=== PATIENT | female | born 1955 | race Caucasian/White ===

== ENCOUNTER 2025-03-04 12:27 | Outpatient (CLI) | payer MEDICARE, SELFPAY ==
--- NOTE | ~2025-03-04 | CT_ITS ---
EXAMINATION: CTA brain carotid DATE: 03/04/2025 13:04 INDICATION: Dizziness and giddiness. TECHNIQUE: Computed tomographic angiography (CTA) of the head was performed without and with 100 mL Omnipaque-350 intravenous contrast. CTA of the neck was performed with intravenous contrast. Automated exposure control and iterative reconstruction technique were employed. The dose-length product was 1637.85 mGy- cm. Maximum intensity projection and volume rendered 3D-reconstructions were created by the technologist on a separate workstation. COMPARISON: None. FINDINGS: HEAD CTA: There are scattered areas of low attenuation in the cerebral white matter, which is within normal limits for the patient's age. There is no intracranial hemorrhage, acute infarction, or abnormal intracranial mass lesion. The ventricles are normal in size. The vertebral arteries are codominant. There is no significant stenosis of basilar artery or the posterior cerebral arteries. There is no significant stenosis of the intracranial internal carotid arteries or anterior or middle cerebral arteries. Anterior communicating artery is normal. The posterior communicating arteries are normal. There is no aneurysm. NECK CTA: There are no pathologically enlarged lymph nodes. There is no significant stenosis of the vertebral arteries. There is plaque in the proximal internal carotid arteries. There is 0% stenosis of the proximal right internal carotid artery relative to normal distal artery lumen diameter (NASCET c riteria). There is 0% stenosis of the proximal left internal carotid artery relative to normal distal artery lumen diameter. There is mild cervical and thoracic spondylosis. IMPRESSION: 1. Normal brain. 2. No aneurysm or significant intracranial arterial stenosis. 3. 0% stenosis of the proximal internal carotid arteries relative to normal distal artery lumen diameters (NASCET criteria). Reviewed, dictated and finalized at location E. NESS PERFORMANCE ADVISOR IMPRESSION: 1. Normal brain. 2. No aneurysm or significant intracranial arterial stenosis. 3. 0% stenosis of the proximal internal carotid arteries relative to normal dis margaret artery lumen diameters (NASCET criteria).
--- OUTSIDE RECORDS SUMMARY | 2025-03-04 12:32 | XMS_ITS | Clinical Summary ---
Author Organization [facility] Address [address] [place] [address] Care Team Providers Care Inspector Firearms Name Role Phone Angy Funes MD Primary Care Provider [phone] Allergies Active Allergy Reactions Criticality Noted Date Comments Amitriptyline Other (See comments) Low 02/12/2020 GETS MEAN [id number] Nausea & Vomiting Low 11/13/2013 Propoxyphene-Acetaminophen Nausea & Vomiting Low Hydrocodone-Ibuprofen Itching Low 11/23/2016 Levofloxacin Lovastatin Unknown 11/23/2016 Bempedoic Acid-Ezetimibe Diarrhea Low 12/14/2023 Oxycodone-Acetaminophen Nausea & Vomiting Low 11/13 Propoxyphene Topiramate Nausea & Vomiting Low 11/23/2016 Tramadol Medications ezetimibe (ZETIA) 10 mg tablet Take 1 tablet (10 mg total) by mouth nightly at bedtime. 2021 Active levothyroxine (SYNTHROID) 50 mcg tablet Take 1 tablet (50 mcg total) by mouth every other day 08/21/2021 Active metFORMIN XR (GLUCOPHAGE XR) 500 mg 24 hr tablet Take 1 tablet (500 mg total) by mouth 2 (two) times a day 08/21/2021 Active aspirin 81 mg enteric coated tablet Take 1 tablet (81 mg total) by mouth daily Active magnesium oxide (MAG-OX) 400 mg (241.3 mg elemental magnesium) tabletIndicatio ns:hypomagnesem ia Take 1 tablet (400 mg total) by mouth daily Active levothyroxine (SYNTHROID) 25 mcg tablet Take 1 tablet (25 mcg total) by mouth every other day Active loratadine (CLARITIN) 10 mg tablet Take 1 tablet (10 mg total) by mouth daily Active pantoprazole DR (PROTONIX) 20 mg EC tablet Take 1 tablet (20 mg total) by mouth daily Active verapamil SR (CALAN SR) 120 mg CR tablet Take 1 tablet (120 mg total) by mouth nightly Active lysine 500 mg tablet Take 1 tablet (500 mg total) by mouth daily Active potassium citrate ER (UROCIT-K) 10 mEq (1,080 mg) CR tablet Take 1 tablet twice a day by oral route. 02/29/2024 Active traZODone (DESYREL) 50 mg tablet TAKE 1/2 TO 1 TABLET BY MOUTH DAILY AT BEDTIME 03/27/2024 Active furosemide (LASIX) 20 mg tablet Take 1 tablet every day as needed Active pitavastatin calcium (LIVALO) 2 mg tablet TAKE 1 TABLET BY MOUTH DAILY 30 tablet 5 01/03/2025 Active Active Problems Problem Noted Date Diagnosed Date History of syncope 12/09/2023 Acquired hypothyroidism 12/09/2023 Hypertension associated with diabetes 12/09/2023 Hyperlipidemia associated with type 2 diabetes m ellitus 12/09/2023 LENARD (obstructive sleep apnea) 12/09/2023 Surgical History Surgery Date Site/Laterality Comments CATARACT EXTRACTION Cataract extraction COLONOSCOPY POLYPECTOMY HYSTERECTOMY APPENDECTOMY CHOLECYSTECTOMY UPPER GASTROINTESTINAL ENDOSCOPY FOOT SURGERY Bilateral multiplte surgeries WRIST SURGERY Left cyst removal ROTATOR CUFF REPAIR Left KNEE ARTHROSCOPY Bilateral ELBOW ARTHROSCOPY Left Medical History Medical History Date Comments Sleep apnea History of colitis Colon polyp Diverticulosis Pancreatic cyst Pancreatitis Dysphagia GERD (gastroesophageal reflux disease) Hypertension Hyperlipidemia Type 2 diabetes mellitus Hypothyroidism Kidney stone Urinary tract infection Arthritis Cataract Glaucoma Anemia Cholelithiasis Syncope Anxiety Heart murmur Family History Medical History Relation Name Comments Skin cancer Brother 1 cancer, skin; Kidney disease Brother 2 Family histor y of kidney disease - (Added by TW Conv) Arthritis Father Family history of arthritis - (Added by TW Conv) Cancer Father Family history of malignant neoplasm - (Added by TW Conv) Colon cancer Father Heart disease Father Family history of cardiac disorder - (Added by TW Conv) Hypertension Father Hypertension; Skin cancer Father cancer, skin; Arthritis Mother Family history of arthritis - (Added by TW Conv) Cancer Mother Family history of malignant neoplasm - (Added by TW Conv) Hypertension Mother Hypertension; Relation Name Status Comments Brother 1 Brother 2 Father Mother Social History Tobacco Use Types Packs/Day Years Used Date Smoking Tobacco: Never Smokeless Tobacco: Never Tobacco Cessation:Counseling Given: Not Answered Alcohol Use Standard Drinks/Week Comments No 0 (1 standard drink = 0.6 oz pur e alcohol) AUDIT-C Answer Date Recorded Q1: How often do you have a drink containing alc ohol? Monthly or less 12/03/2023 Q2: How many drinks containi ng alcohol do you have on a typical day when you are drinking? 1 or 2 12/03/2023 Q3: How often do you have si x or more drinks on one occasion? Never 12/03/2023 Personal Safety Answer Date Recorded Have you ever been in or are you currently in a harmful physical or emotional relationship or is someone making you feel afraid or unsafe? Denies 12/14/2023 Comments No Sex and Gender Information Value Date Recorded Sex Assigned at Not on file Legal Sex Female 1:18 AM [facility] [employer] Gender Identity Not on file Sexual Orientation Not on file Last Filed Vital Signs Vital Sign Reading Time Taken Comments Blood Pressure 120/70 09/28/2024 9:23 AM CDT Pulse 73 09/28/2024 9:23 AM CDT Temperature 36.2 C (97.2 F) 12/14/2023 7:44 AM CDT Respiratory Rate 12 12/14/2023 9:13 AM CDT Oxygen Saturation 95% 09/28/2024 9:23 AM CDT Inhaled Oxygen Concentration - - Weight 73.9 kg (163 lb) 09/28/2024 9:23 AM CDT Height 154.9 cm (5' 1) 09/28/2024 9:23 AM CDT Body Mass Index 30.8 09/28/2024 9:23 AM CDT Plan of Treatment Health Maintenance Due Date Last Done Comments Albumin Creatinine Ratio, Urine 1955 Colon Cancer Screening-Colonoscopy 1955 Depression Screening 1955 Hemoglobin A1C 1955 Hepatitis C Screening 1955 Osteoporosis Screening-Bone Density Scan 1955 eGFR 1955 Dilated Eye Exam 1955 Foot Exam 1955 Zoster Vaccine (1 of 2) 07/23/2005 Pneumococcal vaccine 65+ (2 of 2 - PCV) 04/08/2016 04/08/2015 Well Visit 65+ 07/23/2020 Fall Risk Assessment 12/13/2024 12/14/2023 Covid-19 Vaccine (3 - 2024-2 6 season) 2024 08/15/2020, 07/16/2020 Influenza Vaccine (#1) 2024 , 01/31/2023, 01/24/2020, Additional history exists Breast Cancer Screening-Mammogram 02/02/2025 024 Lipid Panel 03/31/2025 03/31/2024, 12/09/2023 DTaP/Tdap/Td Vaccine (3 - Td or Tdap) 11/22/2033 11/23/2023, 06/18/2008, 12/26/1996 Hepatitis B Screening Completed 01/14/2015 , 12/13/2014, 01/10/1996, Additional history exists Procedures Procedure Name Priority Date/Time Associated Diagnosis Comments POCT LIPID PANEL Routine 03/31/2024 9:45 AM [facility] Lipid screening from Last 3 Months or Most Recently Relevant to Health Maintenance Results * POCT lipid panel (03/31/2024 9:45 AM [facility]) Cholesterol, POC 182 mg/dL HDL, POC 72 mg/dL Triglycerides, POC 183 mg/dL LDL Cholesterol POC 73 mg/dL Chol/HDL Ratio, POC 1.0 Non-HDL Cholesterol, POC 110 mg/dL Cholesterol Total, POC 182 mg/dL Capillary blood 03/31/2024 9 :45 AM [facility] [employer] Brandi Melendrez NP POINT OF CARE TEST ORDERA BLES Final Result from Last 3 Months or Most Recently Relevant to Health Maintenance Insurance MEDICARE [employer] SENIOR SUPPLEMENT MEDICARE MEDICARE Advance Directives For more information, please contact: [phone] * Full Code (Latest Code Status on File) Date Activated Date Inactivated Comments 12/14/2023 7:35 AM 12/14/2023 1:33 PM * Full Code Date Activated Date Inactivated Comments 11/24/2022 7:32 AM 11/24/2022 2:52 PM * Full Code Date Activated Date Inactivated Comments 09/30/2021 9:16 AM 09/30/2021 3:33 PM Care Teams Inspector Firearms Relationship Specialty Start Date End Date Angy Funes MD PCP - General Family Medicine 12/06/23
[2025-03-04 12:58] LABS: Estimated Glomerular Filt Rate > 60
== END 2025-03-04 12:28 | disposition home or self-care (01) ==
PROVIDERS: PCP Family Medicine; Visit Provider Otolaryngology
DX: R42 Dizziness and giddiness (principal)
CPT/HCPCS: 70496; 70498; Q9967